=== PATIENT | female | born 1985 | race Caucasian/White ===

== ENCOUNTER 2020-10-01 04:25 | Outpatient (CLI) | payer OTHER, SELFPAY ==
[2020-10-01 15:45] LABS: HCT 36.7 % (36.0-46.0); HGB 12.5 g/dL (11.2-15.7); MCH 28.4 pg (27.0-33.0); MCHC 34.1 % (32.0-36.0); MCV 83.4 fL (80-95); MPV 10.2 fL (8.0-11.0); Platelet Count 308 10^3/uL (130-400); RDW 13.2 % (11.7-14.6); RDW-SD 40.5 fL; WBC 7.99 10^3/uL (4.4-10.8)
[2020-10-01 17:13] LABS: Anion Gap 7.8 mmol/L (3-11); BUN 10 mg/dL (7-18); CO2 29.2 mmol/L (21.0-32.0); CREATININE 0.8 mg/dL (0.55-1.02); Calcium 8.8 mg/dL (8.5-10.1); Calculated LDL 94 mg/dL (<100); Chloride 103 mmol/L (98-107); Cholesterol 174 mg/dL (<200); Glucose 105 mg/dL (74-106); HDL Cholesterol 53 mg/dL (40-60); Sodium 140 mmol/L (136-145); TSH (W/Ref FT4) 0.34 uIU/mL (0.36-3.74); Triglyceride 137 mg/dL (<150)
[2020-10-01 17:33] LABS: FREE T4 1.09 ng/dL (0.76-1.46)
== END 2020-10-01 04:26 | disposition home or self-care (01) ==
PROVIDERS: PCP Student in an Organized Health Care Education/Training Program; Visit Provider Student in an Organized Health Care Education/Training Program
DX: M32.8 Other forms of systemic lupus erythematosus (principal); N92.0 Excessive and frequent menstruation with regular cycle; E03.9 Hypothyroidism, unspecified; Z13.220 Encounter for screening for lipoid disorders
CPT/HCPCS: 36415; 80048; 80061; 85027; 84439; 84443

== ENCOUNTER 2021-06-13 23:16 | Outpatient (CLI) | payer MEDICAID, SELFPAY ==
[2021-06-13 16:19] LABS: Abs Immature Grans 0.03 10^3/uL (0.0-0.06); Absolute Basophil Count 0.08 10^3/uL (0.0-0.2); Absolute Lymphocyte Count 3.49 10^3/uL (1.2-3.4); Absolute Neutrophil Count 5.74 10^3/uL (1.2-6.7); Basophils % 0.8; HCT 40.5 % (36.0-46.0); HGB 13.4 g/dL (11.2-15.7); Immature Grans % 0.3; Lymphocytes % 34.4; MCH 28.1 pg (27.0-33.0); MCHC 33.1 % (32.0-36.0); MCV 84.9 fL (80-95); MPV 9.7 fL (8.0-11.0); Monocytes % 6.9; Neutrophils % 56.6; Nucleated RBC 0 %; Platelet Count 319 10^3/uL (130-400); RBC 4.77 10^6/uL (3.93-5.22); RDW 12.7 % (11.7-14.6); RDW-SD 39.2 fL; WBC 10.14 10^3/uL (4.4-10.8)
[2021-06-13 16:52] LABS: D-Dimer 212 ng/mlFEU (<500)
[2021-06-13 17:40] LABS: ALT 46 U/L (14-59); AST 22 U/L (15-37); Albumin 4.7 g/dL (3.4-5.0); Alkaline Phosphatase 35 U/L (46-116); Anion Gap 8.6 mmol/L (3-11); BUN 16 mg/dL (7-18); Bilirubin, Total 0.3 mg/dL (0.2-1.0); CO2 29.4 mmol/L (21.0-32.0); CREATININE 0.9 mg/dL (0.55-1.02); Calcium 9.7 mg/dL (8.5-10.1); Chloride 100 mmol/L (98-107); Glucose 99 mg/dL (74-106); Potassium 4.2 mmol/L (3.5-5.1); Sodium 138 mmol/L (136-145); TSH (W/Ref FT4) 1.09 uIU/mL (0.36-3.74); Total Protein 8.2 g/dL (6.4-8.2)
== END 2021-06-13 23:17 | disposition home or self-care (01) ==
LOC: LBO 23:17
PROVIDERS: PCP Student in an Organized Health Care Education/Training Program; Visit Provider Nurse Practitioner Family
DX: E03.9 Hypothyroidism, unspecified (principal); R06.02 Shortness of breath
CPT/HCPCS: 36415; 80053; 84443; 85025; 85379

== ENCOUNTER 2021-06-17 01:32 | Outpatient (CLI) | payer MEDICAID, SELFPAY ==
--- NOTE | 2021-06-17 15:14 | DI.RAD_ITS ---
Exam(s) XR CHEST 2V PA LATERAL EXAM: XR CHEST 2V PA LATERAL CLINICAL HISTORY: 1 mo SOB,.R06.02. TECHNIQUE: 2D digital imaging was performed. COMPARISON: No exams were available for comparison FINDINGS: Heart size is normal. The mediastinum is not widened. Lungs are clear. No infiltrates nor pleural effusions. IMPRESSION: No acute pulmonary findings. DATA REPOSITORY: RADIATION DOSE DELIVERED:
== END 2021-06-17 01:52 ==
PROVIDERS: PCP Student in an Organized Health Care Education/Training Program; Visit Provider Nurse Practitioner Family
DX: R06.02 Shortness of breath (principal)
CPT/HCPCS: 71046

== ENCOUNTER 2022-05-28 18:03 | Emergency (ER) | payer MEDICAID, SELFPAY ==
[2022-05-28 18:07] VITALS: BP 109/57; PULSE 79; RESP 14; TEMP 36.9; O2SAT 100
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
[2022-05-28] MEDS: Amox. 875/Clav. 125, 2 TABS/BTL 1 TAB PO (20:34)
[2022-05-28] MEDS: Amoxicillin 875/Clav. 125 TAB PO (20:34)
== END 2022-05-28 20:41 | disposition home or self-care (01) ==
PROVIDERS: Emergency Provider Nurse Practitioner Family; PCP Student in an Organized Health Care Education/Training Program
DX: K04.7 Periapical abscess without sinus (principal)
CPT/HCPCS: 99283

== ENCOUNTER 2022-06-09 04:24 | Outpatient (CLI) | payer MEDICAID, SELFPAY ==
[2022-06-09 17:01] LABS: Anion Gap 9.2 mmol/L (3-11); BUN 15 mg/dL (7-18); CO2 27.8 mmol/L (21.0-32.0); CREATININE 0.8 mg/dL (0.55-1.02); Calcium 9.6 mg/dL (8.5-10.1); Chloride 102 mmol/L (98-107); Estimated GFR 98.48 (mL/min/1.73m2); Glucose 105 mg/dL (74-106); Sodium 139 mmol/L (136-145); TSH (W/Ref FT4) 0.56 uIU/mL (0.36-3.74)
[2022-06-09 17:15] LABS: Vitamin D 25 Total 26.6 ng/mL (30-100)
== END 2022-06-09 04:25 | disposition home or self-care (01) ==
LOC: LBO 04:24
PROVIDERS: PCP Student in an Organized Health Care Education/Training Program; Visit Provider Student in an Organized Health Care Education/Training Program
DX: E46 Unspecified protein-calorie malnutrition (principal); Z79.899 Other long term (current) drug therapy; J45.909 Unspecified asthma, uncomplicated; R42 Dizziness and giddiness; Z91.89 Other specified personal risk factors, not elsewhere classified; E03.9 Hypothyroidism, unspecified; M32.9 Systemic lupus erythematosus, unspecified
CPT/HCPCS: 36415; 80048; 82306; 84443

== ENCOUNTER 2022-06-24 16:32 | Outpatient (REF) | payer MEDICAID, SELFPAY ==
--- NOTE | 2022-06-24 15:35 | PAPFT_PTH ---
PATIENT: Brooke Niño LOC: [facility] U#:[id number] AGE/SX: 36/F ROOM: RE06/24/[address]: Dilcia Juárez CNM : 1985 BED: DIS: 06/24/2022 SPEC #: [id number] RECD: 06/24/22 17:15 STATUS: MARCY REQ #: [id number] KEYA: 06/24/22 15:[address]: Dilcia Juárez DEPT: [facility] Cytology RECD BY: Hilaria Hammond ENTERED: 06/24/22 17:16 SP TYPE: PAPFT OTHR DR: Priya Munroe, Tissues: 1 - CX/ENDOCX FOR PAP SMEARS Procedures: PAP THIN PREP/UVM Screening HPV DNA PROBE Comments: [id number]
== END 2022-06-24 16:33 | disposition home or self-care (01) ==
LOC: LBN 16:32
PROVIDERS: PCP Student in an Organized Health Care Education/Training Program; Visit Provider Advanced Practice Midwife
DX: Z12.4 Encounter for screening for malignant neoplasm of cervix (principal); Z11.51 Encounter for screening for human papillomavirus (HPV)
CPT/HCPCS: 88142; 87624

== ENCOUNTER 2022-09-29 02:41 | Outpatient (CLI) | payer MEDICAID, SELFPAY ==
--- NOTE | 2022-10-02 14:26 | W.PFT ---
Date of service: 09/29/22 Time of Service: 20:52 Pulmonary Function Test Result Indications: headache Note: Overnight Oximetry Amount of time analyzed: 8 hours, 8 minutes Number of minutes under 88%: 3 FLORA: 4.8 Appearance of oxygen saturation pattern: Intermittent sharp decreases, that may represent [place]RRA[place]. Recommendation: No supplemental O2 required. Can consider polysomnography if clinically appropriate Marianna Young MD Pulmonary & Critical Care Medicine Clinical Correlation therefore is recommended.
== END 2022-09-29 02:42 | disposition home or self-care (01) ==
LOC: RT 02:41
PROVIDERS: PCP Student in an Organized Health Care Education/Training Program; Visit Provider Student in an Organized Health Care Education/Training Program
DX: D68.61 Antiphospholipid syndrome (principal); G43.109 Migraine with aura, not intractable, without status migrainosus; R42 Dizziness and giddiness
CPT/HCPCS: 94762

== ENCOUNTER 2022-09-30 02:53 | Outpatient (CLI) | payer MEDICAID, SELFPAY ==
[2022-09-30 17:43] LABS: Anion Gap 8.7 mmol/L (3-11); BUN 13 mg/dL (7-18); CO2 29.3 mmol/L (21.0-32.0); CREATININE 0.9 mg/dL (0.55-1.02); Calcium 9.5 mg/dL (8.5-10.1); Chloride 103 mmol/L (98-107); Glucose 94 mg/dL (74-106); Potassium 3.5 mmol/L (3.5-5.1); Sodium 141 mmol/L (136-145); TSH (W/Ref FT4) 0.35 uIU/mL (0.36-3.74)
[2022-09-30 18:03] LABS: FREE T4 1.02 ng/dL (0.76-1.46)
== END 2022-09-30 02:54 | disposition home or self-care (01) ==
LOC: LBO 02:53
PROVIDERS: PCP Student in an Organized Health Care Education/Training Program; Visit Provider Student in an Organized Health Care Education/Training Program
DX: R73.9 Hyperglycemia, unspecified (principal); E03.9 Hypothyroidism, unspecified; R63.5 Abnormal weight gain; D68.61 Antiphospholipid syndrome; R51.9 Headache, unspecified
CPT/HCPCS: 80048; 83735; 84439; 84443

== ENCOUNTER 2022-10-09 11:13 | Emergency (ER) | payer MEDICAID, SELFPAY ==
[2022-10-09 11:16] VITALS: BP 99/58; PULSE 101; RESP 16; TEMP 37.2; O2SAT 100
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
[2022-10-09 14:05] LABS: COVID-19 PCR Negative (Negative); Influenza A PCR Negative (Negative); Influenza B PCR Negative (Negative); RSV PCR Negative (Negative)
[2022-10-09 14:07] LABS: Source Nasopharynx
== END 2022-10-09 14:45 | disposition home or self-care (01) ==
PROVIDERS: Emergency Provider Physician Assistant; PCP Student in an Organized Health Care Education/Training Program
DX: S16.1XXA Strain of muscle, fascia and tendon at neck level, initial encounter (principal); J02.0 Streptococcal pharyngitis; Z20.822 Contact with and (suspected) exposure to COVID-19; X58.XXXA Exposure to other specified factors, initial encounter
CPT/HCPCS: 81025; 87637; 87880; 99283; 99284

== ENCOUNTER 2022-11-05 06:48 | Day surgery (SDC) | payer MEDICAID, SELFPAY ==
--- NOTE | 2022-11-05 06:49 | W.PM.PROGNOT ---
Date of Service Date of service: 11/05/22 Time of Service: 08:06 Assessment and Plan Assessment and plan (1) GERD (gastroesophageal reflux disease): Status: Chronic Assessment and plan: Ms Niño is a pleasant 36-year-old female who is here to discuss an upper endoscopy.? She does have a history of GERD for which she takes omeprazole 20 mg daily.? She used to treat it with Tums and [id number]-crhtbxf Pepcid which helped for a little while.? Her primary care physician is concerned about long-term use of omeprazole.? I did discuss with the patient depending on what I find at the time of the upper endoscopy we could trial her on some prescription strength Pepcid which would be twice a day.? We discussed the upper endoscopy in detail as well as the risks and benefits and complications.? The patient seemed to understand the risks and benefits and wished to proceed.? Risks, benefits and complications have been reviewed. Complications include but are not limited to bleeding, pain, perforation, sore throat, aspiration, and adverse reaction to the medications.? Questions were entertained and answered to their satisfaction and they wished to proceed. No guarantees were given or implied. Proceed with EGD Subjective Subjective Interval history since last seen: Brooke is doing well. She has recovered from the pharingitis. She has no residual sore throat. No other changes in her health since I saw her Exam Const General: comfortable and no acute distress HENNV Head: normocephalic and atraumatic Resp Effort & Inspection: normal respiratory effort Auscultation: clear to auscultation bilaterally Cardio Rate: regular rate Rhythm: regular rhythm Time Spent with Patient Time Spent with Patient: <25 minutes Time was spent: obtaining and/or reviewing separately otained hiistory and counseling the patient
--- NOTE | 2022-11-05 06:50 | ENDO_ITS ---
Date of service: 11/05/22 Time of Service: 08:26 Endoscopy Report DATE OF PROCEDURE: 11/05/22 PRE-OP DIAGNOSIS: GERD POST-OP DIAGNOSIS: same PROCEDURE: EGD with biopsy SURGEON: Tracy Kay ANESTHESIA TYPE: General:No Airway ESTIMATED BLOOD LOSS: 3 PATHOLOGY: other (gastritis, esophagitis, ) COMPLICATIONS: None DISPOSITION: same day INDICATIONS: Ms Niño is a pleasant 36-year-old female who is here to discuss an upper endoscopy.? She does have a history of GERD for which she takes omeprazole 20 mg daily.? She used to treat it with Tums and ijwc-inj-ugjglab Pepcid which helped for a little while.? Her primary care physician is concerned about long-term use of omeprazole.? I did discuss with the patient depending on what I find at the time of the upper endoscopy we could trial her on some prescription strength Pepcid which would be twice a day.? We discussed the upper endoscopy in detail as well as the risks and benefits and complications.? The patient seemed to understand the risks and benefits and wished to proceed.? Risks, benefits and complications have been reviewed. Complications include but are not limited to bleeding, pain, perforation, sore throat, aspiration, and adverse reaction to the medications.? Questions were entertained and answered to their satisfaction and they wished to proceed. No guarantees were given or implied. FINDINGS: Mild gastritis mild esophagitis PROCEDURE DESCRIPTION: After informed consent was obtained the patient was take to the procedure room and placed in a supine position. Monitors were applied and a time out was done. The patients name, date of , procedure type, allergies to medications and metal in their body was reviewed. A bite block was placed and the patient was sedated. Once sedated and comfortable the gastroscope was advanced through the oropharynx which was grossly normal into the esophagus. The proximal and mid- esophagus were normal. In the distal esophagus there was mild inflammation noted. The scope was advanced into the stomach and through the pylorus into the 3rd portion of the duodenum. The 2nd and 3rd portion of the duodenum was noted to be normal. There was mild inflammation in the duodenal bulb. Biopsies were done. The scope was retracted back into the stomach and biopsies were done to rule out H. pylori. There was mild inflammation in the antrum. There were no ulcers. The scope was retroflexed. The cardia and fundus were noted to be normal. There no hiatal hernia noted. The scope was retracted back into the esophagus and biopsies were done of the GE junction to rule out Lennon's. The Z line was irregular. The GE junction was at 38 cm. The scope was removed and the patient was woken up and taken back to [facility] in stable condition. Follow up: 2 weeks
--- NOTE | 2022-11-05 06:51 | PDOC.DSDIS_ITS ---
Date of service: 11/05/22 Time of Service: 08:30 Discharge Plan Disposition Patient Disposition: Home Condition: Good Discharge Details Reason For Visit: GERD Attending Provider: Tracy Kay Primary Care Provider: Priya Munroe Home Meds and New Rx's Prescriptions: Continued dietary supplement Capsule 1 cap PO DAILY Patient Comments: Pt states, Calcium/Mag combined, and also Potassium pill separate, per her vice president diversity Jose David. All are OTC.HE cholecalciferol (vitamin D3) 125 mcg (5,000 unit) capsule 125 mcg PO DAILY Qty: 90 1RF levothyroxine 100 mcg tablet 100 mcg PO DAILY Qty: 90 3RF No Action omeprazole 20 mg capsule,delayed release(DR/EC) 20 mg PO DAILY Qty: 90 0RF Rx Instructions: Take 20 mg once daily in the morning at least 30 minutes before first meal Discharge Instructions Instructions: GERD (Gastroesophageal Reflux Disease) (DC), Esophagitis (DC) Additional Instructions: Findings: mild inflammation in the small intestine and stomach mild to moderate inflammation in the esophagus Follow up: 2 weeks Please call if you develop: fevers >101.5 Nausea or Vomiting Abdominal pain that is not transient Rectal bleeding that is more then a tbsp A hard abdomen and inability to pass gas DAY SURGERY UNIT POST ENDOSCOPY INSTRUCTIONS Instructions for everyone who is given Anesthesia: For your safety, please do the following for the next 24 Hours: a. Do not drive or operate dangerous equipment b. Do not drink alcohol beverages or use any recreational drugs for the first 24 hours or while taking pain medications. The medications in your body may have a reaction that can be dangerous. c. Do not make any important decisions or sign any important papers 1. Generally there are no restrictions on your activity after a day or so has gone by, but you may feel a bit fatigued for a few days. 2. After you arrive home you may have a light meal and return to a normal diet as you can tolerate it without feeling sick to your stomach. 3. After surgery, you may feel pain or discomfort. This should be only transient, but if it persists please contact your doctor. 4. If there are any questions regarding the findings of your procedure, please feel free to contact your doctor. 6. If you are unable to contact your doctor with a problem, contact the hospital at [phone]. 7. Continue all your regular medications unless directed otherwise. I understand the above instructions and have no questions. Signature of Patient or Responsible Adult Escort Date/Time Name of Responsible Adult Escort Signature of Nurse Date/Time Stand Alone Forms: Anesthesia Discharge Inst.Gary (DSU) Activity:: Activity as Tolerated Diet:: As Tolerated Discharge Orders Discharge Orders: Discharge Order (Routine); Ordered 11/05/22 Ordered By: Tracy Kay Discharge Data Discharge Date/Time-TO BE ENTERED AT DEPARTURE: 11/05/22 09:10 DS: Diagnosis Discharge Diagnosis (1) GERD (gastroesophageal reflux disease): Status: Chronic Asessment and Plan: Patient is seen and examined after their endoscopy. Patient has minimal sore throat. They have been able to tolerate liquids. They do not have any Nausea or Vomiting. They are not having any chest pain or shortness of breath. They have been able to pass gas and are not having any abdominal pain or distention. they have not vomited any blood. The vital signs have been stable-see nursing notes. We discussed findings on their endoscopy We reviewed the importance of lifestyle modifications- see diet recommendations We reviewed any new medications that the patient may be prescribed- see medicine reconciliation. Patient will either be sent a letter with the biopsy results or follow up in the office- see discharge instructions Patient was given explicit instructions for emergency follow up post endoscopy- see discharge instructions Patient verbalized understanding and was discharged in stable and satisfactory condition. See nursing notes.
[2022-11-05 06:59] VITALS: BP 121/72; PULSE 74; RESP 17; TEMP 36.6; O2SAT 100
[2022-11-05] MEDS: Lactated Ringers 1,000 ML 80 ML IV (07:20)
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
[2022-11-05 08:02] VITALS: BMI 27.7
--- NOTE | 2022-11-05 08:17 | STOM_PTH ---
PATIENT: Brooke Niño LOC: [facility] U#:[id number] AGE/SX: 36/F ROOM: RE11/05/[address]: Tracy Kay MD : 1985 BED: DIS: 11/05/2022 SPEC #: [id number] RECD: 11/05/22 11:46 STATUS: MARCY REQ #: [id number] KEYA: 11/05/22 08:[address]: Tracy Kay DEPT: Surgical Specimen RECD BY: Hilaria Hammond ENTERED: 11/05/22 11:46 SP TYPE: STOMACH OTHR DR: Priya Munroe DO Tissues: 1 - BIOPSY BOWEL 2 - STOMACH BIOPSY 3 - ESOPHAGUS BIOPSY Procedures: GROSS AND MICRO LEVEL 4 Comments: [id number]
[2022-11-05 08:32] VITALS: BP 118/75; PULSE 90; RESP 17; TEMP 36.5; O2SAT 100
[2022-11-05 09:00] VITALS: BP 107/70; PULSE 76; RESP 17; TEMP 36.3; O2SAT 100
--- NOTE | 2022-11-05 10:12 | W.ANESPOSTOP ---
Postoperative Evaluation Date, Time and Location Date Performed: 11/05/22 Time Performed: 09:00 Patient Location: Day Surgery Unit Vital Signs Most Recent Imported Vital Signs: Most Recent Vital Signs Temp Pulse Resp BP Pulse Ox 36.3 C L 76 17 107/70 100 11/05/22 09:00 11/05/22 09:00 11/05/22 09:00 11/05/22 09:00 11/05/22 09:00 Pain Score Most Recent Pain Score: Most Recent Pain Score Pain Level 0 11/05/22 09:00 Assessment Mental Status: Awake (Alert & Oriented to Patient Baseline) Airway and Respiratory Function: Patent airway with normal (patient baseline) respiratory exam Cardiovascular Function: Hemodynamically Stable Hydration Status: Adequately Hydrated Nausea & Vomiting: No Nausea or Vomiting Pain: Pt. Denies Any Pain Peripheral Nerve Block: Patient did not receive a nerve block
== END 2022-11-05 09:10 | disposition home or self-care (01) ==
PROVIDERS: PCP Student in an Organized Health Care Education/Training Program; Visit Provider Surgery
PROC: 0DJ68ZZ Inspection of Stomach, Via Natural or Artificial Opening Endoscopic (ICD-10-PCS; CPT 43235; principal; 2022-11-05 08:15)
DX: K21.9 Gastro-esophageal reflux disease without esophagitis (principal); K29.70 Gastritis, unspecified, without bleeding; K20.90 Esophagitis, unspecified without bleeding
CPT/HCPCS: 43239; 81025; 88305; J2405

== ENCOUNTER 2022-11-10 01:17 | Outpatient (CLI) | payer MEDICAID, SELFPAY ==
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
== END 2022-11-10 01:37 ==
LOC: DI 01:17
PROVIDERS: PCP Student in an Organized Health Care Education/Training Program; Visit Provider Student in an Organized Health Care Education/Training Program
DX: M54.2 Cervicalgia (principal); Z87.828 Personal history of other (healed) physical injury and trauma
CPT/HCPCS: 72050

== ENCOUNTER 2022-11-27 01:53 | Outpatient (CLI) | payer MEDICAID, SELFPAY ==
--- NOTE | 2022-11-27 08:15 | DI.US_ITS ---
Exam(s) US THYROID EXAM: US THYROID CLINICAL HISTORY: Evaluate for nodule,family h/o goiter,hypothyroidism,e03.9,z83.49. TECHNIQUE: Ultrasound thyroid performed using standard protocol. COMPARISON: No exams were available for comparison FINDINGS: ISTHMUS: 4 mm RIGHT LOBE: Size: 3.6 x 1.3 x 1.5 cm Echogenicity: Normal. Vascularity: Normal. Nodules: There are several small cysts present. The largest measures 2 mm. No suspicious nodules ar e seen to warrant follow-up or biopsy. LEFT LOBE: Size: 3.6 x 1.5 x 1.2 cm Echogenicity: Normal. Vascularity: Normal. Nodules: There are several small cysts present. The largest measures 2 mm. No suspicious nodules ar e seen to warrant follow-up or biopsy. OTHER FINDINGS: None. IMPRESSION: No suspicious thyroid nodules. DATA REPOSITORY:
== END 2022-11-27 02:13 ==
PROVIDERS: PCP Student in an Organized Health Care Education/Training Program; Visit Provider Student in an Organized Health Care Education/Training Program
DX: E03.9 Hypothyroidism, unspecified (principal); Z83.49 Family history of other endocrine, nutritional and metabolic diseases
CPT/HCPCS: 76536

== ENCOUNTER 2022-11-27 03:08 | Outpatient (CLI) | payer MEDICAID, SELFPAY ==
[2022-11-27 14:47] LABS: TSH (W/Ref FT4) 0.41 uIU/mL (0.36-3.74)
[2022-11-27 16:02] LABS: Vitamin D 25 Total 48.7 ng/mL (30-100)
== END 2022-11-27 03:09 | disposition home or self-care (01) ==
LOC: LBO 03:08
PROVIDERS: PCP Student in an Organized Health Care Education/Training Program; Referring Provider Student in an Organized Health Care Education/Training Program; Visit Provider Student in an Organized Health Care Education/Training Program
DX: R79.89 Other specified abnormal findings of blood chemistry (principal); E55.9 Vitamin D deficiency, unspecified
CPT/HCPCS: 36415; 82306; 84443

== ENCOUNTER 2022-12-05 01:38 | Outpatient (CLI) | payer MEDICAID, SELFPAY ==
[2022-12-05] MEDS: Methacholine 100 MG VIAL IH (17:08)
[2022-12-05] MEDS: Albuterol HFA 18 GM 200 PUFF INH IH (17:08)
[2022-12-05] MEDS: Inhaler, Assist Device 1 EACH MC (17:08)
--- NOTE | 2022-12-09 07:17 | W.PFT ---
Date of service: 12/05/22 Time of Service: 14:56 Pulmonary Function Test Result Indications: Asthma Interpretation Spirometry: There is no airflow limitation. There was a 16% decreased in FEV1 with administration of 8 mg/mL methacholine. Lung Volumes: Normal lung volumes Diffusion Capacity: Normal diffusion Airway Pressure: Normal airways resistance Impression Normal pulmonary function testing. Negative methacholine challenge to 8mg/mL (16mg/mL does not appear to have been performed), likely a negative test. Clinical Correlation therefore is recommended.
== END 2022-12-05 01:39 | disposition home or self-care (01) ==
LOC: RT 01:40
PROVIDERS: PCP Student in an Organized Health Care Education/Training Program; Visit Provider Physician Assistant Surgical
DX: J45.909 Unspecified asthma, uncomplicated (principal)
CPT/HCPCS: 94060; 94070; 94726; 94729; 94010; J7674

== ENCOUNTER 2022-12-31 02:40 | Outpatient (CLI) | payer MEDICAID, SELFPAY ==
[2022-12-31 16:28] LABS: Abs Immature Grans 0.02 10^3/uL (0.0-0.06); Absolute Basophil Count 0.06 10^3/uL (0.0-0.2); Absolute Eosinophil Count 0.13 10^3/uL (0.0-0.7); Absolute Lymphocyte Count 3.56 10^3/uL (1.2-3.4); Absolute Neutrophil Count 2.94 10^3/uL (1.2-6.7); Basophils % 0.8; Eosinophils % 1.8; HCT 39.4 % (36.0-46.0); HGB 12.9 g/dL (11.2-15.7); Immature Grans % 0.3; Lymphocytes % 50.1; MCH 27.9 pg (27.0-33.0); MCHC 32.7 % (32.0-36.0); MCV 85 fL (80-95); MPV 9.9 fL (8.0-11.0); Monocytes % 5.6; Neutrophils % 41.4; Platelet Count 330 10^3/uL (130-400); RBC 4.62 10^6/uL (3.93-5.22); RDW 12.9 % (11.7-14.6); RDW-SD 39.8 fL; WBC 7.11 10^3/uL (4.4-10.8)
[2022-12-31 18:16] LABS: Anion Gap 8.1 mmol/L (3-11); BUN 18 mg/dL (7-18); CO2 29.9 mmol/L (21.0-32.0); CREATININE 0.9 mg/dL (0.55-1.02); Calcium 9.7 mg/dL (8.5-10.1); Chloride 101 mmol/L (98-107); Estimated GFR 84.97 (mL/min/1.73m2); Ferritin 61 ng/mL (8-252); Glucose 91 mg/dL (74-106); Potassium 4.2 mmol/L (3.5-5.1); Sodium 139 mmol/L (136-145)
[2022-12-31 18:46] LABS: Iron 65 ug/dL (50-170); Total Iron Binding Capacity 287 ug/dL (250-450); Transferrin Sat 23 % (15-50)
== END 2022-12-31 02:41 | disposition home or self-care (01) ==
LOC: LBO 02:40
PROVIDERS: PCP Student in an Organized Health Care Education/Training Program; Visit Provider Student in an Organized Health Care Education/Training Program
DX: E03.9 Hypothyroidism, unspecified (principal); I95.9 Hypotension, unspecified; K21.9 Gastro-esophageal reflux disease without esophagitis; N92.0 Excessive and frequent menstruation with regular cycle; Z91.89 Other specified personal risk factors, not elsewhere classified
CPT/HCPCS: 36415; 80048; 82728; 83540; 83550; 83735; 85025

== ENCOUNTER 2023-01-31 20:19 | Emergency (ER) | payer MEDICAID, SELFPAY ==
[2023-01-31 20:22] VITALS: BP 132/74; PULSE 98; RESP 16; TEMP 35.6; O2SAT 99
--- NOTE | 2023-01-31 20:25 | DI.RAD_ITS ---
Exam(s) XR ANKLE LT COMPLETE EXAM: XR ANKLE LT COMPLETE CLINICAL HISTORY: pain at left lateral ankle and mid foot. TECHNIQUE: 2D digital imaging was performed. COMPARISON: No exams were available for comparison FINDINGS: 3 views No evidence of fracture nor widening of the ankle mortise. Talar dome unremarkable. No significant soft tissue swelling. Bone density is normal. No osseous lesions. No osseous tarsal coalition. IMPRESSION: No acute osseous findings. DATA REPOSITORY: RADIATION DOSE DELIVERED:
--- NOTE | 2023-01-31 20:25 | DI.RAD_ITS ---
Exam(s) XR FOOT LT COMPLETE EXAM: XR FOOT LT COMPLETE CLINICAL HISTORY: pain at left lateral ankle and mid foot. TECHNIQUE: 2D digital imaging was performed. COMPARISON: No exams were available for comparison FINDINGS: 3 views No evidence of fracture nor diastasis of the Lisfranc joint. Bone density normal. No osseous lesion s nor erosions. No radiopaque foreign body evident. No degenerative changes. IMPRESSION: No significant osseous findings in the foot. DATA REPOSITORY: RADIATION DOSE DELIVERED:
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
--- NOTE | 2023-01-31 21:18 | DI.VRAD_ITS ---
PROCEDURE INFORMATION: Exam: XR Left Ankle Exam date and time: 01/31/2023 8:42 PM Age: 37 years old Clinical indication: Pain; Ankle; Left TECHNIQUE: Imaging protocol: Radiologic exam of the left ankle. Views: 3 or more views. COMPARISON: No relevant prior studies available. FINDINGS: Bones/joints: No fracture or dislocation. Soft tissues: Soft tissue swelling of [id number] severity. No gas or foreign body. IMPRESSION: 1. Soft tissue swelling. 2. No fracture or dislocation. Dictated and Authenticated by: Ric Brower MD. Ordering:MEL Brunson MD
--- NOTE | 2023-01-31 21:19 | DI.VRAD_ITS ---
PROCEDURE INFORMATION: Exam: XR Left Foot Exam date and time: 01/31/2023 8:44 PM Age: 37 years old Clinical indication: Pain; Foot; Left TECHNIQUE: Imaging protocol: Radiologic exam of the left foot. Views: 3 or more views. COMPARISON: CR XR ANKLE LT COMPLETE 01/31/2023 8:42 PM FINDINGS: Bones/joints: Normal. Soft tissues: Normal. IMPRESSION: 1. No acute findings. 2. No acute fracture or dislocation. 3. Soft tissues of the foot are unremarkable. Dictated and Authenticated by: Ric Brower MD. Ordering:MEL Brunson MD
== END 2023-01-31 21:34 | disposition home or self-care (01) ==
PROVIDERS: Emergency Provider Student in an Organized Health Care Education/Training Program; PCP Student in an Organized Health Care Education/Training Program
DX: S93.402A Sprain of unspecified ligament of left ankle, initial encounter (principal); M32.9 Systemic lupus erythematosus, unspecified; E11.9 Type 2 diabetes mellitus without complications; E03.9 Hypothyroidism, unspecified; W50.1XXA Accidental kick by another person, initial encounter; Y93.01 Activity, walking, marching and hiking; Y92.79 Other farm location as the place of occurrence of the external cause; Y99.9 Unspecified external cause status
CPT/HCPCS: 99283; 73610; 73630

== ENCOUNTER → 2023-07-21 02:10 | Outpatient (CLI) | payer MEDICAID, SELFPAY ==
--- NOTE | 2023-07-21 16:10 | DI.RAD_ITS ---
Exam(s) XR THUMB LT XR HAND LT COMPLETE EXAM: XR HAND LT COMPLETE CLINICAL HISTORY: eval joint spaces; bony path; Hx lupus;? RA,HAND JOINT PAIN,M25.50. TECHNIQUE: 2D digital imaging was performed. Six views. COMPARISON: CR XR THUMB LT from 07/21/2023 FINDINGS: BONES: No acute fracture is present. No bony destructive lesion is seen. The bones are normally min eralized. JOINTS: No dislocation present. The joint spaces are maintained. SOFT TISSUE: Normal. IMPRESSION: Unremarkable radiographs of the left hand and left thumb. DATA REPOSITORY: RADIATION DOSE DELIVERED:
== END ==
PROVIDERS: PCP Student in an Organized Health Care Education/Training Program; Visit Provider Student in an Organized Health Care Education/Training Program
DX: M79.641 Pain in right hand (principal); M79.642 Pain in left hand
CPT/HCPCS: 73130; 73140

== ENCOUNTER 2023-11-27 02:34 | Outpatient (CLI) | payer MEDICAID, SELFPAY ==
[2023-11-27 17:07] LABS: FREE T4 0.92 ng/dL (0.76-1.46); TSH (W/Ref FT4) 0.31 uIU/mL (0.36-3.74)
[2023-11-28 21:58] LABS: T3,Free 3.5 pg/mL (2.8-5.3)
== END 2023-11-27 02:35 | disposition home or self-care (01) ==
PROVIDERS: PCP Student in an Organized Health Care Education/Training Program; Visit Provider Student in an Organized Health Care Education/Training Program
DX: I47.19 Other supraventricular tachycardia; D68.61 Antiphospholipid syndrome
CPT/HCPCS: 36415; 84439; 84443; 84481

== ENCOUNTER 2023-11-29 17:13 | Emergency (ER) | payer MEDICAID, SELFPAY ==
[2023-11-29 17:22] VITALS: BP 113/68; PULSE 83; RESP 12; TEMP 36.7; O2SAT 99
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
[2023-11-29] MEDS: Doxycycline Hyclate 100 MG CAP PO (18:27)
[2023-11-29] MEDS: Doxycycline Hyclate 100 MG, 2 CAPS/BTL PO (18:27)
== END 2023-11-29 18:31 | disposition home or self-care (01) ==
PROVIDERS: Emergency Provider Emergency Medicine; PCP Student in an Organized Health Care Education/Training Program
DX: R21 Rash and other nonspecific skin eruption (principal); S90.861A Insect bite (nonvenomous), right foot, initial encounter; M32.9 Systemic lupus erythematosus, unspecified; Y93.89 Activity, other specified; Y92.89 Other specified places as the place of occurrence of the external cause
CPT/HCPCS: 99283

== ENCOUNTER 2023-11-30 20:43 | Emergency (ER) | payer MEDICAID, SELFPAY ==
[2023-11-30 20:46] VITALS: BP 106/47; PULSE 63; RESP 18; TEMP 37; O2SAT 100
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
== END 2023-12-01 02:54 | disposition home or self-care (01) ==
PROVIDERS: Emergency Provider Emergency Medicine; PCP Student in an Organized Health Care Education/Training Program
DX: S90.464A Insect bite (nonvenomous), right lesser toe(s), initial encounter; W57.XXXA Bitten or stung by nonvenomous insect and other nonvenomous arthropods, initial encounter
CPT/HCPCS: 99282; 99283

== ENCOUNTER → 2023-12-24 00:21 | Outpatient (CLI) | payer MEDICAID, SELFPAY ==
--- NOTE | 2023-12-24 08:30 | DI.US_ITS ---
Exam(s) US THYROID EXAM: US THYROID CLINICAL HISTORY: eval for fullness, and nodules, endocrine disorder, autoimmune disease. TECHNIQUE: Ultrasound thyroid performed using standard protocol. COMPARISON: US US THYROID from 11/27/2022 FINDINGS: ISTHMUS: 3 mm RIGHT LOBE: Size: 3.8 x 0.9 x 1.2 cm Echogenicity: Normal. Vascularity: Normal. Nodules: No nodules are seen that would warrant follow-up or biopsy. LEFT LOBE: Size: 3.5 x 1.3 x 1 cm Echogenicity: Normal. Vascularity: Normal. Nodules: No nodules are seen that would warrant follow-up or biopsy. OTHER FINDINGS: None. IMPRESSION: No suspicious thyroid nodules. DATA REPOSITORY:
== END ==
PROVIDERS: PCP Student in an Organized Health Care Education/Training Program; Visit Provider Student in an Organized Health Care Education/Training Program
DX: R22.1 Localized swelling, mass and lump, neck (principal); E34.8 Other specified endocrine disorders; D68.61 Antiphospholipid syndrome; M35.89 Other specified systemic involvement of connective tissue; M32.8 Other forms of systemic lupus erythematosus
CPT/HCPCS: 76536

== ENCOUNTER 2024-11-24 18:15 | Outpatient (REF) | payer MEDICAID, SELFPAY ==
--- NOTE | 2024-11-24 16:00 | PAPFT_PTH ---
PATIENT: Brooke Niño LOC: [facility] U#:[id number] AGE/SX: 38/F ROOM: RE11/24/[address]: Bethany Perkins DO : 1985 BED: DIS: 11/24/2024 SPEC #: [id number] RECD: 11/24/24 18:18 STATUS: SOUSada REQ #: [id number] KEYA: 11/24/24 16:[address]: Bethany Perkins DEPT: [facility] Cytology RECD BY: Hilaria Hammond ENTERED: 11/24/24 18:19 SP TYPE: PAPFT OTHR DR: Lolita Mace APRN Tissues: 1 - CX/ENDOCX FOR PAP SMEARS Procedures: PAP THIN PREP/[facility] Screening Comments: [id number]
== END 2024-11-24 18:16 | disposition home or self-care (01) ==
LOC: LBN 18:15
PROVIDERS: PCP Nurse Practitioner Family; Visit Provider Obstetrics & Gynecology
DX: Z12.4 Encounter for screening for malignant neoplasm of cervix (principal)
CPT/HCPCS: 88142